=== PATIENT | male | born 1995 | race Caucasian/White ===

== ENCOUNTER 2017-08-16 18:42 | Emergency (ER) | payer OTHER ==
[2017-08-16 19:22] VITALS: BP 118/59; PULSE 103; TEMP 99.3; BMI 27.2
--- NOTE | 2017-08-16 19:23 | PDOC ---
Rapid Medical Evaluation Time Seen by Provider: 08/16/17 19:16 Medical Evaluation: 08/16/17 19:16 The patient presents with a chief complaint of: [Unable to eat, N/V, abdominal pain.] I have performed a brief in-person evaluation of this patient. Pertinent physical exam findings: vss, [Generalized abdominal pain, dry mucus membranes, patient is a poor historian. Lungs clear. HRR] I have ordered the following: [None] The patient will proceed to the ED for further evaluation. Discharge Disposition - Diagnosis Abdominal pain Qualifiers: Abdominal location: unspecified location Qualified Code(s): R10.9 - Unspecified abdominal pain - Referrals - Patient Instructions - Post Discharge Activity
--- NOTE | 2017-08-16 20:13 | PDOC ---
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 The patients history provided by family. Allergies: NKDA Social history: lives home with family, unemployed. <Lindsay Archibald - Last Filed: 08/17/17 01:40> <Pilar Bañuelos - Last Filed: 08/17/17 01:41> - General Chief Complaint: Pain Stated Complaint: STOMACH PAIN Time Seen by Provider: 08/16/17 19:16 Past History <Lindsay Archibald - Last Filed: 08/17/17 01:40> - Past Medical History COPD: No - Suicide/Smoking/Psychosocial Hx Smoking History: Never smoked [facility] <Pilar Bañuelos - Last Filed: 08/17/17 01:41> - Past Medical History Allergies/Adverse Reactions: Allergies Allergy/AdvReac Type Severity Reaction Status Date / Time No Known Allergies Allergy Verified 08/16/17 19:18 Home Medications: Ambulatory Orders NK [No Known Home Medication] 08/16/17 Review of Systems - Review of Systems Able to Perform ROS?: No (as per family) <Lindsay Archibald - Last Filed: 08/17/17 01:40> *Physical Exam - Vital Signs Last Vital Signs Temp Pulse Resp BP Pulse Ox 99.3 F 103 H 18 118/59 99 08/16/17 19:18 08/16/17 19:18 08/16/17 19:18 08/16/17 19:18 08/16/17 19:18 - Physical Exam Comments: 08/16/17 20:31 GENERAL: Well developed, well nourished. Awake and alert. No acute distress. HEENT: Normocephalic, atraumatic. PERRLA, EOMI. No conjunctival pallor. Sclera are non- icteric. Moist mucous membranes. Oropharynx is clear. NECK: Supple. Full ROM. No JVD. Carotid pulses 2+ and symmetric, without bruits. No thyromegaly. No lymphadenopathy. CARDIOVASCULAR: Regular rate and rhythm. No murmurs, rubs, or gallops. Distal pulses are 2+ and symmetric. PULMONARY: No evidence of respiratory distress. Lungs clear to auscultation bilaterally. No wheezing, rales or rhonchi. ABDOMINAL: (+) RLQ tenderness on palpation. Soft. Non-distended. No rebound or guarding. No organomegaly. Normoactive bowel sounds. MUSCULOSKELETAL Normal range of motion at all joints. No bony deformities or tenderness. No CVA tenderness. EXTREMITIES: No cyanosis. No clubbing. No edema. No calf tenderness. SKIN: Warm and dry. Normal capillary refill. No rashes. No jaundice. NEUROLOGICAL: (+) cognitive deficits as per baseline. Alert, awake, appropriate. Cranial nerves 2-12 intact. Normoreflexic in the upper and lower extremities. Toes are down-going bilaterally. PSYCHIATRIC: Cooperative. Good eye contact. Appropriate mood and affect <Lindsay Archibald - Last Filed: 08/17/17 01:40> - Vital Signs Last Vital Signs Temp Pulse Resp BP Pulse Ox 99.3 F 103 H 18 118/59 99 08/16/17 19:18 08/16/17 19:18 08/16/17 19:18 08/16/17 19:18 08/16/17 19:18 <Pilar Bañuelos - Last Filed: 08/17/17 01:41> ED Treatment Course - LABORATORY CBC & Chemistry Diagram: 08/16/17 20:32 08/16/17 Unknown - RADIOLOGY Radiograph Interpretation: DATE OF SERVICE: 2017-08-17 00:47:32 IMAGES: [id number] EXAM: CT abdomen and pelvis with contrast HISTORY: Appendicitis COMPARISON: None. FINDINGS: Lung bases are clear. The visualized cardiac chambers are normal size and configuration. The liver is fatty. Normal gallbladder, pancreas, spleen, adrenal glands and kidneys. The stomach and abdominal small and large bowel are normal. There is no aortic aneurysm. There is no significant retroperitoneal lymphadenopathy. The pelvic small and large bowel are normal. The appendix is normal. The urinary bladder and prostate gland are normal. No pelvic free fluid is identified. There is no significant pelvic lymphadenopathy. IMPRESSION: Fatty liver. Normal appendix. No definite evidence of acute pathology. Casimiro Ford MD 08/17/2017 01:36 EST <Lindsay Archibald - Last Filed: 08/17/17 01:40> - LABORATORY CBC & Chemistry Diagram: 08/16/17 20:32 08/16/17 Unknown <Pilar Bañuelos - Last Filed: 08/17/17 01:41> *DC/Admit/Observation/Transfer - Attestations Scribe Attestion: 08/16/17 20:33 Documentation prepared by Lindsay Archibald, acting as medical health researcher for Pilar Bañuelos MD <Lindsay Archibald - Last Filed: 08/17/17 01:40> <Pilar Bañuelos - Last Filed: 08/17/17 01:41> Diagnosis at time of Disposition: Abdominal pain Qualifiers: Abdominal location: unspecified location Qualified Code(s): R10.9 - Unspecified abdominal pain - Discharge Dispostion Disposition: HOME Condition at time of disposition: Stable - Referrals Referrals: Adelfo Valles MD [Primary Care Provider] - - Patient Instructions Printed Discharge Instructions: DI for Abdominal Pain-Adult Additional Instructions: please followup with your regular physician - Post Discharge Activity
[2017-08-16] MEDS ORDERED: SODIUM CHLORIDE 1,000 ML IV STA (20:24)
[2017-08-16 20:43] LABS: BASO % 0.4 % (0-2.0); HEMATOCRIT 46.7 % (35.4-49); HEMOGLOBIN 15.8 GM/dL (11.7-16.9); LYMPH % 21.7 % (8-40); MCH 29.1 pg (25.7-33.7); MCHC 33.9 g/dl (32.0-35.9); MEAN CELL VOLUME 85.8 fl (80-96); MEAN PLT VOLUME 8.8 fl (7.5-11.1); MONO % 7.8 % (3.8-10.2); NEUT % 69.1 % (42.8-82.8); PLATELET COUNT 326 K/MM3 (134-434); RBC 5.44 M/mm3 (4.00-5.60); RDW 12.6 % (11.9-15.9); WHITE BLOOD COUNT 7.7 K/mm3 (4.0-10.0)
[2017-08-16 21:02] LABS: URINE APPEARANCE CLEAR; URINE BILIRUBIN NEGATIVE (NEGATIVE); URINE BLOOD NEGATIVE (NEGATIVE); URINE COLOR YELLOW; URINE GLUCOSE (UA) NEGATIVE (NEGATIVE); URINE KETONE 2+ (NEGATIVE); URINE LEUK ESTERASE NEGATIVE (NEGATIVE); URINE NITRITE NEGATIVE (NEGATIVE); URINE PROTEIN NEGATIVE (NEGATIVE)
[2017-08-16 23:45] LABS: ALBUMIN 4.2 g/dl (3.4-5.0); ANION GAP 10 (8-16); BILIRUBIN,TOTAL 0.9 mg/dL (0.2-1.0); BLOOD UREA NITROGEN 18 mg/dL (7-18); CALCIUM 8.8 mg/dL (8.5-10.1); CHLORIDE 103 mmol/L (98-107); CO2 24 mmol/L (21-32); CREATININE 0.8 mg/dL (0.7-1.3); GLUCOSE,RANDOM 70 mg/dL (74-106); SGPT/ALT 51 U/L (12-78); SODIUM 137 mmol/L (136-145); TOT PROT 7.4 g/dl (6.4-8.2)
[2017-08-16 23:46] LABS: ALK PHOS 68 U/L (45-117)
[2017-08-16 23:48] LABS: POTASSIUM 4.5 mmol/L (3.5-5.1)
[2017-08-16 23:49] LABS: SGOT/AST 20 U/L (15-37)
== END 2017-08-17 02:27 | disposition home or self-care (01) ==
LOC: JER 18:42
PROC: 3E0337Z Introduction of Electrolytic and Water Balance Substance into Peripheral Vein, Percutaneous Approach (ICD-10-PCS; principal; 2017-08-16)
DX: R10.31 Right lower quadrant pain (principal); R41.89 Other symptoms and signs involving cognitive functions and awareness
CPT/HCPCS: 36415; 74177-TC; 80053; 81003; 85025; 96360; 99283-25

== ENCOUNTER 2023-08-23 20:04 | Emergency (ER) | payer OTHER ==
[2023-08-23 20:24] VITALS: BP 104/67; PULSE 68; RESP 20; TEMP 97.4; BMI 30.2
[2023-08-24 00:44] LABS: BASO % 0.7 % (0-2.0); EOS % 2.4 % (0-4.5); HEMOGLOBIN 16.1 GM/dL (11.7-16.9); LYMPH % 27.8 % (8-40); MCH 29.9 pg (25.7-33.7); MEAN CELL VOLUME 85.3 fl (80-96); MEAN PLT VOLUME 7.9 fl (7.5-11.1); MONO % 14.1 % (3.8-10.2); PLATELET COUNT 308 10^3/uL (134-434); RBC 5.39 M/mm3 (4.00-5.60); RDW 12.8 % (11.9-15.9); WHITE BLOOD COUNT 5.6 K/mm3 (4.0-10.0)
[2023-08-24 00:56] LABS: POTASSIUM 4.7 mmol/L (3.5-5.1)
[2023-08-24 00:58] LABS: ALBUMIN 4.5 g/dl (3.4-5.0); BLOOD UREA NITROGEN 12.6 mg/dL (7-18); CALCIUM 9.4 mg/dL (8.5-10.1)
[2023-08-24 01:01] LABS: CREATININE 1.2 mg/dL (0.55-1.3)
[2023-08-24 01:03] LABS: BILIRUBIN,TOTAL 0.8 mg/dL (0.2-1); TOT PROT 8.1 g/dl (6.4-8.2)
== END 2023-08-24 02:11 | disposition home or self-care (01) ==
LOC: JER 20:04
DX: R00.2 Palpitations (principal); R07.89 Other chest pain; R20.0 Anesthesia of skin
CPT/HCPCS: 36415; 71046-TC-FY; 80053; 84484; 85025; 93005; 93010; 99284-25